=== PATIENT | male | born 1930 | race Caucasian/White ===

== ENCOUNTER 2018-02-21 09:24 | Observation (INO) | payer OTHER ==
[~2018-02-21] VITALS: Ht 170.2 cm; Wt 81.9 kg
[~2018-02-21 09:24] MED LIST: ASPIRIN EC325 MG PO; CRESTOR40 MG PO; GEMFIBROZIL600 MG PO; LISINOPRIL40 MG PO; PROAIR HFA8.5 GM IH; SYMBICORT60 INHALAT IH
[2018-02-21 09:51] LABS: HEMATOCRIT 42.1 % (38.0-50.0); HEMOGLOBIN 14.2 G/DL (12.5-16.6); MCH 31.9 PG (29.0-34.0); MCHC 33.7 G/DL (30.0-36.0); MCV 94.6 FL (86-99); PLATELET COUNT 227 K/uL (156-360); RBC DIS.WIDTH-CV 12.9 % (11.8-14.6); RBC DIS.WIDTH-SD 44.9 % (39-53); RED BLOOD COUNT 4.45 M/uL (4.00-5.50); WHITE BLOOD COUNT 6.1 K/uL (4.1-10.2)
[2018-02-21 10:04] LABS: ALBUMIN 4.3 g/dL (3.2-4.8); CHLORIDE 106 mEq/L (99-109); POTASSIUM 4.2 mEq/L (3.7-5.4); SODIUM 142 mEq/L (136-147)
[2018-02-21 10:06] LABS: GLUCOSE 101 mg/dL (70-99)
[2018-02-21 10:07] LABS: TOTAL PROTEIN 7.1 g/dL (6.4-8.3)
[2018-02-21 10:08] LABS: TOTAL BILIRUBIN 0.5 mg/dL (0.0-1.0)
[2018-02-21 10:10] LABS: ALKALINE PHOSPHATASE 32 IU/L (3-129); CREATININE 0.8 mg/dL (0.6-1.3); GFR ESTIMATE (CALCULATED) > 59 mL/min/ (58.99-99999)
[2018-02-21 10:11] LABS: UREA NITROGEN (BUN) 11 mg/dL (9-23)
[2018-02-21 10:12] LABS: AST (GOT) 18 IU/L (2-34)
[2018-02-21 10:13] LABS: ALT (GPT) 15 IU/L (3-49); CREATINE KINASE 115 IU/L (1-294); TOTAL CK 115 IU/L (1-294)
[2018-02-21 10:14] LABS: TROP-I INTERPRETATION NEGATIVE; TROPONIN-I < 0.01 ng/mL (0.0-0.30)
[2018-02-21 10:19] LABS: CK-MB 1.9 ng/mL (0.0-4.9); CKMB RELATIVE INDEX 1.7 (0.0-3.9)
[2018-02-21] MEDS ORDERED: CYANOCOBALAM1000 MCG PO (12:47)
[2018-02-21] MEDS ORDERED: VITAMIN A8000 UNIT PO (12:47)
[2018-02-21] MEDS ORDERED: ASCORBIC ACID500 M3 PO (12:47)
[2018-02-21] MEDS ORDERED: LITE COAT ASPI325 M1 PO (12:47)
[2018-02-21] MEDS ORDERED: INCRUSE ELLI62.5 MCG IH (12:48)
[2018-02-21 14:37] VITALS: BP 190/81
[2018-02-21 14:58] LABS: D-DIMER ELISA < 150.00 ng/mLDDU (<230)
[2018-02-21 16:09] VITALS: BP 192/84
[2018-02-21 16:27] LABS: TROP-I INTERPRETATION NEGATIVE; TROPONIN-I < 0.01 ng/mL (0.0-0.30)
[2018-02-21 18:34] VITALS: BP 156/72
[2018-02-21 19:33] VITALS: BP 140/63
[2018-02-21 22:15] LABS: TROP-I INTERPRETATION NEGATIVE; TROPONIN-I 0.01 ng/mL (0.0-0.30)
[2018-02-21 23:53] VITALS: BP 138/68
[2018-02-22 08:16] VITALS: BP 118/57
[2018-02-22] MEDS ORDERED: IMDUR60 MG PO (09:17)
== END 2018-02-22 11:26 | disposition home or self-care (01) ==
LOC: EME 09:24 → EDOF 12:38 → ENRESERV 13:02 → 4SOUTH 14:21
PROVIDERS: Emergency Medicine; Physician Assistant
DX: R07.89 Other chest pain (principal); I10 Essential (primary) hypertension; R91.1 Solitary pulmonary nodule; E78.5 Hyperlipidemia, unspecified; J96.10 Chronic respiratory failure, unspecified whether with hypoxia or hypercapnia; J44.9 Chronic obstructive pulmonary disease, unspecified; Z99.81 Dependence on supplemental oxygen; Z87.891 Personal history of nicotine dependence; Z82.49 Family history of ischemic heart disease and other diseases of the circulatory system; Z66 Do not resuscitate
CPT/HCPCS: 71046; 71250; 80053; 82550; 82553; 84484; 85027; 85379; 93005; 94640; 94640 76; 94799; 99202; 99281; 99285; G0378; J0360; J1644

== ENCOUNTER → 2018-03-31 | Outpatient (CLI) | payer OTHER ==
[~2018-03-31] MED LIST changes: +ASCORBIC ACID500 M3 PO; +CYANOCOBALAM1000 MCG PO; +IMDUR60 MG PO; +INCRUSE ELLI62.5 MCG IH; +LITE COAT ASPI325 M1 PO; +VITAMIN A8000 UNIT PO; +VITAMIN E200 UNI2 PO
== END | disposition home or self-care (01) ==
LOC: OPR 08:23 → EDSTATUS 09:00 → OPR 09:00
PROC: 0BBC3ZX Excision of Right Upper Lung Lobe, Percutaneous Approach, Diagnostic (ICD-10-PCS; principal; 2018-03-31)
DX: C34.11 Malignant neoplasm of upper lobe, right bronchus or lung (principal); Z87.891 Personal history of nicotine dependence; I10 Essential (primary) hypertension; J44.9 Chronic obstructive pulmonary disease, unspecified; E78.5 Hyperlipidemia, unspecified; Z79.82 Long term (current) use of aspirin
CPT/HCPCS: 71045; 77012; 88305; 88341 TC; 88342 TC; J3010